=== PATIENT | female | born 1980 | race Caucasian/White ===

== ENCOUNTER 2017-12-30 19:23 | Emergency (ER) | payer MEDICAID ==
[~2017-12-30] VITALS: Ht 157.5 cm; Wt 118.8 kg
[2017-12-30 19:59] VITALS: Ht 157.5 cm; Wt 118.8 kg
[2017-12-30 20:34] VITALS: BP 117/64
== END 2017-12-30 20:34 | disposition home or self-care (01) ==
LOC: ED 19:23
DX: O26.892 Other specified pregnancy related conditions, second trimester (principal); J45.909 Unspecified asthma, uncomplicated; M23.91 Unspecified internal derangement of right knee; Z88.2 Allergy status to sulfonamides; Z3A.28 28 weeks gestation of pregnancy